=== PATIENT | female | born 1980 | race Caucasian/White ===

== ENCOUNTER 2019-06-25 07:47 | Emergency (ER) | payer OTHER ==
[~2019-06-25] VITALS: Ht 165.1 cm; Wt 90.7 kg
[2019-06-25] MEDS ORDERED: PRENATABS FA T1 EACH (07:58)
== END 2019-06-25 12:52 | disposition home or self-care (01) ==
LOC: ER 07:47
DX: O20.8 Other hemorrhage in early pregnancy (principal)

== ENCOUNTER 2019-12-04 10:20 | Outpatient (CLI) | payer OTHER ==
[~2019-12-04 10:20] MED LIST: PRENATABS FA T1 EACH
== END 2019-12-04 11:22 | disposition home or self-care (01) ==
LOC: NST 10:20
PROVIDERS: ATTEND Obstetrics & Gynecology Maternal & Fetal Medicine
DX: Z34.83 Encounter for supervision of other normal pregnancy, third trimester (principal)

== ENCOUNTER 2019-12-19 08:52 | Outpatient (CLI) | payer OTHER | END 2019-12-19 10:11 | disposition home or self-care (01) | LOC: NST 08:52 | PROVIDERS: ATTEND Obstetrics & Gynecology Maternal & Fetal Medicine | DX: Z34.83 Encounter for supervision of other normal pregnancy, third trimester (principal) ==

== ENCOUNTER 2020-01-18 07:33 | Outpatient (CLI) | payer OTHER | END 2020-01-18 11:53 | disposition home or self-care (01) | LOC: NST 07:33 | PROVIDERS: ATTEND Obstetrics & Gynecology Maternal & Fetal Medicine | DX: Z34.83 Encounter for supervision of other normal pregnancy, third trimester (principal) ==

== ENCOUNTER 2020-01-18 15:00 | Inpatient (IN) | payer OTHER ==
[~2020-01-18] VITALS: Ht 165.1 cm; Wt 94.8 kg
[2020-02-07] MEDS ORDERED: PEPCID AC20 MG PO (08:40)
[2020-02-07] MEDS ORDERED: GLYBURIDE2.5 MG PO (08:40)
== END 2020-02-09 13:46 | disposition home or self-care (01) | DRG 807 ==
LOC: OB/GYN 02-07 05:43 → LDR 02-07 05:43 → OB/GYN 02-07 19:32 → LDR 02-13 15:00
PROVIDERS: ADMIT Obstetrics & Gynecology; ATTEND Obstetrics & Gynecology
PROC: 10E0XZZ Delivery of Products of Conception, External Approach (ICD-10-PCS; principal; 2020-02-07)
PROC: 0KQM0ZZ Repair Perineum Muscle, Open Approach (ICD-10-PCS; 2020-02-07)
PROC: 4A1HXFZ Monitoring of Products of Conception, Cardiac Rhythm, External Approach (ICD-10-PCS; 2020-02-07)
PROC: 3E033VJ Introduction of Other Hormone into Peripheral Vein, Percutaneous Approach (ICD-10-PCS; 2020-02-07)
DX: O70.1 Second degree perineal laceration during delivery (principal); Z37.0 Single live birth; Z3A.39 39 weeks gestation of pregnancy

== ENCOUNTER 2020-01-25 07:57 | Outpatient (CLI) | payer OTHER | END 2020-01-25 08:56 | disposition home or self-care (01) | LOC: NST 07:57 | PROVIDERS: ATTEND Obstetrics & Gynecology | DX: Z34.83 Encounter for supervision of other normal pregnancy, third trimester (principal) ==

== ENCOUNTER 2020-02-01 07:23 | Outpatient (CLI) | payer OTHER | END 2020-02-01 08:21 | disposition home or self-care (01) | LOC: NST 07:23 | PROVIDERS: ATTEND Obstetrics & Gynecology | DX: Z34.83 Encounter for supervision of other normal pregnancy, third trimester (principal) ==

== ENCOUNTER 2020-02-05 09:15 | Outpatient (CLI) | payer OTHER | END 2020-02-05 10:04 | disposition home or self-care (01) | LOC: NST 09:15 | PROVIDERS: ATTEND Obstetrics & Gynecology | DX: Z34.83 Encounter for supervision of other normal pregnancy, third trimester (principal) ==